=== PATIENT | male | born 1970 | race Caucasian/White ===

== ENCOUNTER 2018-04-20 13:05 | Emergency (ER) | payer OTHER ==
[2018-04-20 13:20] VITALS: BP 134/83; PULSE 97; RESP 18; TEMP 98.1
--- NOTE | 2018-04-20 13:40 | ED ---
General Adult HPI - General Chief complaint: Psychiatric Symptoms Stated complaint: panic attacks Time Seen by Provider: 04/20/18 13:05 Source: patient, RN notes reviewed Mode of arrival: ambulatory Limitations: no limitations - History of Present Illness Initial comments: This is a 47-year-old male who presents emergency Department complaining of anxiety. Patient states that his anxiety is been taking Xanax. Patient states he recently moved up from [place] and is yet to get into his doctor's appointment. Patient states she has a doctor department on the this month. Patient states he keeps waking up in the panic because he has broken his leg recently is unable to work and so he is very anxious. Patient states she's also had a bee living with his mother because of the broken leg and that is also increasing his anxiety. Patient states he's had no difficulty breathing chest pain or palpitations. Patient states he just needs his Xanax prescription back and he will be feeling fine. Patient denies any swelling to his legs or pain in his legs. - Related Data Previous Rx's Medication Instructions Recorded ALPRAZolam [Xanax] 0.25 mg PO DAILY PRN #20 tab 04/20/18 Allergies Allergy/AdvReac Type Severity Reaction Status Date / Time No Known Allergies Allergy Verified 04/20/18 13:19 Review of Systems ROS Statement: Those systems with pertinent positive or pertinent negative responses have been documented in the HPI. ROS Other: All systems not noted in ROS Statement are negative. Past Medical History Past Medical History: No Reported History History of Any Multi-Drug Resistant Organisms: None Reported Past Surgical History: No Surgical Hx Reported Past Psychological History: No Psychological Hx Reported Smoking Status: Current every day smoker Past Alcohol Use History: None Reported Past Drug Use History: None Reported General Exam - General Exam Comments Initial Comments: GENERAL: Patient is well-developed and well-nourished. Patient is nontoxic and well- hydrated and is in no acute distress. ENT: Neck is soft and supple. No significant lymphadenopathy is noted. Oropharynx is clear. Moist mucous membranes. Neck has full range of motion without eliciting any pain. EYES: The sclera were anicteric and conjunctiva were pink and moist. Extraocular movements were intact and pupils were equal round and reactive to light. Eyelids were unremarkable. PULMONARY: Unlabored respirations. Good breath sounds bilaterally. No audible rales rhonchi or wheezing was noted. CARDIOVASCULAR: There is a regular rate and rhythm without any murmurs gallops or rubs. SKIN: Skin is clear with no lesions or rashes and otherwise unremarkable. NEUROLOGIC: Patient is alert and oriented x3. Cranial nerves II through XII are grossly intact. Motor and sensory are also intact. Normal speech, volume and content. Symmetrical smile. MUSCULOSKELETAL: Patient has a short-leg cast on the left leg LYMPHATICS: No significant lymphadenopathy is noted PSYCHIATRIC: Patient is slightly anxious in the emergency department. Limitations: no limitations Course Vital Signs 04/20/18 13:17 Temperature 98.1 F Pulse Rate 97 Respiratory 18 Rate Blood Pressure 134/83 O2 Sat by Pulse 100 Oximetry Disposition Clinical Impression: Acute anxiety Disposition: HOME SELF-CARE Condition: Good Instructions: Anxiety (ED) Prescriptions: ALPRAZolam [Xanax] 0.25 mg PO DAILY PRN #20 tab PRN Reason: Anxiety Is patient prescribed a controlled substance at d/c from ED?: Yes When asked, does pt state using other controlled substances?: No If prescribed controlled substance>3 days was MAPS reviewed?: Yes Referrals: Edgar Monahan MD [Primary Care Provider] - 1-2 days Time of Disposition: 13:37
== END 2018-04-20 14:00 | disposition home or self-care (01) ==
LOC: EC 13:05
DX: F41.9 Anxiety disorder, unspecified (principal); F17.200 Nicotine dependence, unspecified, uncomplicated
CPT/HCPCS: 99283

== ENCOUNTER 2018-11-06 13:09 | Day surgery (SDC) | payer OTHER ==
[~2018-11-06 13:09] MED LIST: DEXAMETHASONE SOD PHOSPHATE 10 MG/ML 1 ML VIAL IV ONE; LACTATED RINGERS 1,000 ML IV SCH; LIDOCAINE 1% 20 ML VIAL (10MG/ML) FOR IV START INTRADERMA PRN; MIDAZOLAM 2 MG/2 ML VIAL IV PRN; ceFAZolin IN SWFI 2 GM/20 ML SYRINGE IVP ONE
[2018-11-06] MEDS ORDERED: ONDANSETRON 4 MG/2 ML VIAL IVP ONE (14:10)
[2018-11-06] MEDS ORDERED: MIDAZOLAM (PF) 2 MG/2 ML VIAL IVP ONE (16:00)
[2018-11-06] MEDS ORDERED: fentaNYL (PF) 50 MCG/ML 2 ML AMP ONE (18:10)
[2018-11-06] MEDS ORDERED: PROPOFOL 10 MG/ML 20 ML VIAL IV ONE (18:10)
[2018-11-06] MEDS ORDERED: MIDAZOLAM 2 MG/2 ML VIAL ONE (18:10)
[2018-11-06] MEDS ORDERED: SUCCINYLCHOLINE CHLORIDE 100 MG/5 ML SYR IV ONE (18:10)
[2018-11-06] MEDS ORDERED: LIDOCAINE 1% INJ 10MG/ML (20 ML MDV) ONE (18:10)
--- NOTE | 2018-11-06 18:58 | P.OP ---
Date of Procedure: 11/06/18 Preoperative Diagnosis: 1. Left global tendo Achilles contracture 2. History of left clubfoot 3. Prior distal tibia and navicular fractures, left Postoperative Diagnosis: Same Procedure(s) Performed: Left percutaneous Starke triple hemisection tendo Achilles lengthening Anesthesia: BRONWYN Surgeon: Tarun Munson Cma Or Lpn #1: Jolie Hayes Estimated Blood Loss (ml): 2 IV fluids (ml): 400 Pathology: none sent Condition: stable Disposition: PACU Indications for Procedure: The patient is a very pleasant 48-year-old male with a medical history significant for current every day cigarette smoking and chronic narcotic depend ence who also has a history of residual left clubfoot who I previously managed a nondisplaced intra-articular distal tibia fracture and navicular fracture. He went on to heal his fractures, but had difficulty with ambulating due to his global tendo Achilles contracture. We discussed physical therapy, night splinting, serial casting, versus percutaneous or open tendo Achilles lengthening. The patient requested operative intervention. We discussed both percutaneous tendo Achilles lengthening versus an open Z-lengthening. Due to the patient's smoking 1 pack of cigarettes a day I recommended percutaneous lengthening due to his very high risk of having a wound complication. The patient understood and agreed to this. He understands the potential for under correction and need for an open lengthening. We discussed all the potential risks and complications including but not limited to risk of anesthesia, superficial infection, deep infection, delayed wound healing, damage to local blood ulcer nerves, Achilles tendon rupture, over lengthening the Achilles tendon resulting in weakness in a crouched gait, under lengthening the tendon with recurrence of his contracture, generalized to satisfaction with surgery, DVT, PE, other medical complications, and inability to regain preinjury level of function and possibly loss of life or limb. The patient voiced his understanding of these potential complications and also acknowledges that other less common complications are possible. He also understands that is a higher risk of having a complication due to his current every day cigarette smoking. Description of Procedure: The patient was identified and prepped holding and the correct left lower extremity was verified and marked with a skin marker. I reviewed the consent form with the patient and his mom. All their questions were answered. The patient was then brought back to the operating room. He was positioned on the OR table where general anesthetic and preoperative antibiotics were administered. The patient had a tourniquet applied proximal aspect of his thigh but was not used during the case. While he was under anesthesia I performed a Silfverskiold test. With the knee extended he was fixed in 20 of equinus. When I bent the knee he remained in 20 of equinus. I interpreted this as a global tendo Achilles contracture. The left leg was then prepped and draped in the standard sterile fashion. Prior to starting surgery timeout verifying the correct patient, operative extremity, and procedure. X The patient's left leg was then elevated by an medication assistant and 3 stab incisions were made a 2 cm intervals starting just proximal to the posterior tuberosity of the calcaneus within the mid substance of the Achilles tendon. The most proximal and distal incisions were used to release the medial 50% of the Achilles tendon and the middle incision was used to release the lateral 50% of the Achilles tendon. A gentle dorsiflexion force was applied to the ankle and there was a palpable and audible pop as the Achilles tendon lengthened. After releasing the Achilles I was able to dorsiflex the ankle just past neutral. The Achilles tendon was palpably intact. The incisions were closed with interrupted 3-0 nylon. A sterile dressing followed by an Omer wrap was applied. The patient was awoken from his anesthetic and brought to recovery having tolerated the procedure well. Plan: the patient is going to be strictly nonweightbearing tonight in his tall boot. He will follow-up in the office tomorrow for a cast.
[2018-11-06 19:04] VITALS: TEMP 97.1
[2018-11-06] MEDS: fentaNYL (PF) 50 MCG/ML 2 ML AMP IV PRN ×2 (19:09→19:20)
[2018-11-06] MEDS ORDERED: HYDROcodone/APAP 10-325MG 1 EACH TAB PO ONE (19:45)
[2018-11-06 19:48] VITALS: PULSE 90; RESP 18
[2018-11-06 20:43] VITALS: BP 139/94
== END 2018-11-06 20:05 | disposition home or self-care (01) ==
LOC: OR 13:09
PROVIDERS: ATTEND Orthopaedic Surgery
DX: M67.02 Short Achilles tendon (acquired), left ankle (principal); Z87.39 Personal history of other diseases of the musculoskeletal system and connective tissue; Z87.81 Personal history of (healed) traumatic fracture; F41.9 Anxiety disorder, unspecified; F17.210 Nicotine dependence, cigarettes, uncomplicated; Z79.891 Long term (current) use of opiate analgesic; Z79.899 Other long term (current) drug therapy
CPT/HCPCS: 27685; J2250 ×2; J1100; J2405; J2001; J3010; J0330; J2704; J0690

== ENCOUNTER 2021-02-03 07:46 | Day surgery (SDC) | payer MEDICARE, OTHER ==
[2021-01-31 14:51] VITALS: BMI 28.0
[~2021-02-03 07:46] MED LIST changes: -DEXAMETHASONE SOD PHOSPHATE 10 MG/ML 1 ML VIAL IV ONE; -LIDOCAINE 1% 20 ML VIAL (10MG/ML) FOR IV START INTRADERMA PRN; -MIDAZOLAM 2 MG/2 ML VIAL IV PRN; -ceFAZolin IN SWFI 2 GM/20 ML SYRINGE IVP ONE
[2021-02-03 08:06] VITALS: TEMP 97.8
[2021-02-03] MEDS ORDERED: LACTATED RINGERS 1,000 ML IV ONE (08:06)
[2021-02-03] MEDS ORDERED: PROPOFOL 10 MG/ML 20 ML VIAL IV ONE (09:33)
[2021-02-03] MEDS ORDERED: LIDOCAINE 1% INJ 10MG/ML (20 ML MDV) ONE (09:33)
--- NOTE | 2021-02-03 09:38 | P.GSHP ---
History of Present Illness H&P Date: 02/03/21 GERD, positive cologuard Past Medical History Past Medical History: GERD/Reflux, Sleep Apnea/CPAP/BIPAP Additional Past Medical History / Comment(s): PAIN IN LEFT ANKLE. HERNIATED DISC. positive cologuard History of Any Multi-Drug Resistant Organisms: None Reported Past Surgical History: Orthopedic Surgery Additional Past Surgical History / Comment(s): achilles tendon lt foot lengthened Past Anesthesia/Blood Transfusion Reactions: No Reported Reaction Additional Past Anesthesia/Blood Transfusion Reaction / Comment(s): HAS NEVER HAD GENERAL ANESTHESIA. Smoking Status: Current every day smoker - Past Family History Mother Family Medical History: No Reported History Medications and Allergies Home Medications Medication Instructions Recorded Confirmed Type ALPRAZolam [Xanax] 1 mg PO DAILY PRN 01/31/21 01/31/21 History Cholecalciferol (Vitamin D3) 125 mcg PO DAILY 01/31/21 01/31/21 History [Vitamin D3 (125 MCG = 5,000 IU)] Escitalopram [Lexapro] 20 mg PO DAILY 01/31/21 01/31/21 History traZODone HCL 50 mg PO HS PRN 01/31/21 01/31/21 History Allergies Allergy/AdvReac Type Severity Reaction Status Date / Time No Known Allergies Allergy Verified 01/31/21 14:40 Surgical - Exam Vital Signs Temp Pulse Resp BP Pulse Ox 97.8 F 96 18 129/81 97 02/03/21 08:05 02/03/21 08:05 02/03/21 08:05 02/03/21 08:05 02/03/21 08:05 - General well developed, well nourished, no distress - Eyes PERRL - ENT normal pinna - Neck no masses - Respiratory normal expansion - Cardiovascular Rhythm: regular - Abdomen Abdomen: soft, non tender Assessment and Plan Assessment: We'll perform EGD and colonoscopy
--- NOTE | 2021-02-03 09:59 | P.OP ---
Date of Procedure: 02/03/21 Preoperative Diagnosis: GERD, GI bleed Postoperative Diagnosis: Antral gastritis duodenum Mild esophagitis Transverse colon polyp Procedure(s) Performed: EGD Colonoscopy Anesthesia: MAC Surgeon: Gm Obando Pathology: other (Antrum, esophagus, transverse colon polyp) Condition: stable Disposition: PACU Description of Procedure: The patient's placed on the endoscopy table in the lateral she received IV sedation. The gastro-placed oropharynx passed in the esophagus into the stomach. Scope was placed through the pylorus. First and second portion of the duodenum appeared normal. Scope was then brought back the antrum this appeared mildly. A biopsies performed. The scope was then retroflexed and the remainder of the stomach appeared normal. Patient had a small hiatal hernia. The GE junction was at 40 cm. The distal esophagus moderately inflamed a biopsies performed. The proximal esophagus appeared normal. Scope was withdrawn for patient. Next digital rectal exam was performed which revealed no abnormalities. Flexible colonoscope was then placed patient anus and passed throughout the entire colon. Ileocecal valve sutures. The cecum ascending colon appeared normal. The transverse colon there was a small polyp was removed with the snare. The remainder of the transverse colon descending colon and sigmoid colon appeared normal. Scope was then brought back the rectum and this appeared normal. Scope withdrawn for patient.
[2021-02-03 10:24] VITALS: BP 122/82; PULSE 74; RESP 16
== END 2021-02-03 10:37 | disposition home or self-care (01) ==
LOC: ORWHC2ENDO 07:46
PROVIDERS: ATTEND Surgery
DX: K29.50 Unspecified chronic gastritis without bleeding (principal); K21.00 Gastro-esophageal reflux disease with esophagitis, without bleeding; D12.3 Benign neoplasm of transverse colon; F17.200 Nicotine dependence, unspecified, uncomplicated; G47.33 Obstructive sleep apnea (adult) (pediatric); Z99.81 Dependence on supplemental oxygen
CPT/HCPCS: 45385; 43239; 88305; 88312; J2001; J2704

== ENCOUNTER → 2021-02-28 | Outpatient (CLI) | payer MEDICARE, OTHER ==
[2021-02-28 10:20] LABS: Basophils # (A) 0.1 k/uL (0-0.2); Basophils % (A) 1 %; Eosinophils # (A) 0.3 k/uL (0-0.7); Eosinophils % (A) 3 %; HCT 47.9 % (39.0-53.0); Lymphocytes # (A) 2.5 k/uL (1.0-4.8); Lymphocytes % (A) 25 %; MCH 30.9 pg (25.0-35.0); MCHC 33.4 g/dL (31.0-37.0); MCV 92.7 fL (80.0-100.0); Mean Platelet Volume 7.9; Monocytes # (A) 0.5 k/uL (0-1.0); Monocytes % (A) 5 %; Neutrophils # (A) 6.3 k/uL (1.3-7.7); Neutrophils % (A) 63 %; Platelet Count 283 k/uL (150-450); RBC 5.17 m/uL (4.30-5.90); RDW 14.2 % (11.5-15.5)
== END | disposition home or self-care (01) ==
LOC: LABPAT 08:40
PROVIDERS: ATTEND Surgery
DX: Z01.818 Encounter for other preprocedural examination (principal); K21.00 Gastro-esophageal reflux disease with esophagitis, without bleeding; D64.89 Other specified anemias
CPT/HCPCS: 36415; 85025; 93005

== ENCOUNTER 2021-03-04 07:54 | Observation (INO) | payer MEDICARE, OTHER ==
[~2021-03-04 07:54] MED LIST changes: +ACETAMINOPHEN TAB 500 MG TAB PO PRN; +DEXAMETHASONE SOD PHOSPHATE 4 MG/ML 1 ML VIAL IV ONE; +HEPARIN SODIUM,PORCINE/PF 5,000 UNIT/0.5 ML SYRINGE SQ PRN; -LACTATED RINGERS 1,000 ML IV SCH; +LIDOCAINE 1% (10MG/ML) FOR IV START INTRADERMA PRN; +MIDAZOLAM 2 MG/2 ML VIAL IV PRN; +ONDANSETRON 4 MG/2 ML VIAL IVP ONE
[2021-03-04] MEDS: LACTATED RINGERS 1,000 ML IV SCH (08:34)
[2021-03-04] MEDS ORDERED: MIDAZOLAM 2 MG/2 ML VIAL IV ONE (08:39)
--- NOTE | 2021-03-04 08:41 | P.GSHP ---
History of Present Illness H&P Date: 03/04/21 Chief Complaint: GERD Is a 50-year-old male referred from Dr. Edgar Rodriges. MThe patient has had long-standing problems with reflux esophagitis. The patient underwent recent EGD is found have evidence of esophagitis. Patient has been well informed on the procedure of laparoscopic Angelito fundoplication. The patient is aware the risk of the conversion to the open procedure, risk of injury to the stomach, liver and spleen. The patient is also a risk of recurrent GERD and dysphagia symptoms. The patient understands there is a postoperative diet of full liquids for 2 weeks after surgery. Past Medical History Past Medical History: GERD/Reflux, Sleep Apnea/CPAP/BIPAP Additional Past Medical History / Comment(s): PAIN IN LEFT ANKLE. HERNIATED DISC. History of Any Multi-Drug Resistant Organisms: None Reported Past Surgical History: Orthopedic Surgery Additional Past Surgical History / Comment(s): Achilles tendon left foot lengthened, EGD, Colonoscopy. Past Anesthesia/Blood Transfusion Reactions: No Reported Reaction Additional Past Anesthesia/Blood Transfusion Reaction / Comment(s): HAS NEVER HAD GENERAL ANESTHESIA. Past Psychological History: Anxiety Smoking Status: Current every day smoker Past Alcohol Use History: None Reported Additional Past Alcohol Use History / Comment(s): HAS SMOKED SINCE AGE 19. DOWN TO ABOUT 1 PACK EVERY 2 DAYS. Past Drug Use History: Marijuana Additional Drug Use History / Comment(s): Jazmin, aware no use 24 hrs prior to procedure. - Past Family History Mother Family Medical History: No Reported History Medications and Allergies Home Medications Medication Instructions Recorded Confirmed Type Cholecalciferol (Vitamin D3) 125 mcg PO DAILY 01/31/21 03/04/21 History [Vitamin D3 (125 MCG = 5,000 IU)] Escitalopram [Lexapro] 20 mg PO QAM 01/31/21 03/04/21 History ALPRAZolam [Xanax] 2.5 mg PO BID 03/02/21 03/04/21 History Propranolol [Inderal] 20 mg PO HS 03/02/21 03/04/21 History Allergies Allergy/AdvReac Type Severity Reaction Status Date / Time No Known Allergies Allergy Verified 03/02/21 15:41 Surgical - Exam Vital Signs Temp Pulse Resp BP Pulse Ox 97.7 F 88 16 122/87 90 L 03/04/21 08:13 03/04/21 08:13 03/04/21 08:13 03/04/21 08:13 03/04/21 08:13 - General well developed, well nourished, no distress - Eyes PERRL - ENT normal pinna - Neck no masses - Respiratory normal expansion - Cardiovascular Rhythm: regular - Abdomen Abdomen: soft, non tender Assessment and Plan Assessment: GERD. We'll perform laparoscopic Angelito fundal plication.
[2021-03-04] MEDS ORDERED: BUPIVACAINE (PF) 0.5% 30 ML VIAL SQ ONE ×2 (09:07→09:26)
[2021-03-04] MEDS ORDERED: PROPOFOL 10 MG/ML 20 ML VIAL IV ONE (09:09)
[2021-03-04] MEDS ORDERED: HYDROmorphone (PF) 1 MG/ML ONE (09:09)
[2021-03-04] MEDS ORDERED: GLYCOPYRROLATE 0.2 MG/ML 2 ML VIAL ONE (09:09)
[2021-03-04] MEDS ORDERED: ROCURONIUM 10 MG/ML (5 ML VIAL) IV ONE (09:09)
[2021-03-04] MEDS ORDERED: MIDAZOLAM 2 MG/2 ML VIAL ONE (09:09)
[2021-03-04] MEDS ORDERED: LIDOCAINE 1% INJ 10MG/ML (20 ML MDV) ONE (09:09)
[2021-03-04] MEDS ORDERED: NEOSTIGMINE 1 MG/ML 10 ML VIAL ONE (09:09)
[2021-03-04] MEDS ORDERED: SUCCINYLCHOLINE CHLORIDE 100 MG/5 ML SYR IV ONE (09:09)
[2021-03-04] MEDS ORDERED: fentaNYL (PF) 50 MCG/ML 2 ML AMP ONE (09:09)
--- NOTE | 2021-03-04 10:04 | P.OP ---
Date of Procedure: 03/04/21 Preoperative Diagnosis: GERD Postoperative Diagnosis: GERD Procedure(s) Performed: Laparoscopic Angelito fundoplication Anesthesia: BRONWYN Surgeon: Gm Obando Estimated Blood Loss (ml): 5 Pathology: none sent Condition: stable Disposition: PACU Description of Procedure: Mignonhe patient was placed on the operating table in the supine position. The patient received general anesthesia. And was placed in dorsal lithotomy position. The patient was prepped and draped in the usual sterile fashion. The skin incision sites were anesthetized with 1% local Xylocaine. The skin was incised in the left periumbilical area and then using a blade less 5 mm trocar under direct visualization panel cavity was entered. After adequate insufflation the laparoscope was then placed into the peritoneal cavity. Next a 5 mm trochars placed in the right epigastric position. Another 5 millimeter trocar the right lateral position. Another 5 millimeter trocar in the left lateral position a 5 mm trocar is placed in the left epigastric position. And then the initial 5 mm trocar was exchanged for a 10 mm trocar. The left lateral lobe liver was retracted. The hernia was seen. The crural defect was then dissected using the Harmonic scissors device. A 360 crural dissection was performed the esophagus stomach was reduced back into the peritoneal Cavity. The crural defect was then closed using 2-0 Ethibond suture. Next the fundus of the stomach was mobilized using the [place]uma scissors device. and then a 58- Scottish bougie dilator was placed oropharynx passed into the esophagus and stomach the fundal plication wrap was then performed by grasping the fundus posteriorly and bringing it around the esophagus and stomach fundoplication was then performed using 2-0 Ethibond suture. Care was taken that the fundal location rested over top of the intra-abdominal esophagus. There was no injury seen to the stomach or esophagus. The dilator was then withdrawn. The abdomen was irrigated there is no bleeding seen. The trochars were then withdrawn and then skin incision sites were closed using 3-0 Monocryl suture Steri-Strips are applied. Patient thought procedure well and sent to recovery room in stable condition.
[2021-03-04] MEDS ORDERED: HYDROmorphone 1 MG/ML 1 ML SYRINGE IVP PRN (10:06)
[2021-03-04] MEDS ORDERED: ONDANSETRON 4 MG/2 ML VIAL IVP PRN (10:06)
[2021-03-04] MEDS: HYDROmorphone 0.5 MG/0.5 ML SYRINGE IVP PRN ×5 (10:09→22:32)
[2021-03-04] MEDS ORDERED: diphenhydrAMINE 50 MG/ML 1 ML VIAL ONE (10:17)
[2021-03-04] MEDS ORDERED: diphenhydrAMINE 50 MG/ML 1 ML VIAL IVP ONE (10:22)
[2021-03-04] MEDS: MEPERIDINE 50 MG/ML SYRINGE IVP ONE ×2 (10:45→10:55)
[2021-03-04] MEDS ORDERED: LACTATED RINGERS 1,000 ML IV ONE ×2 (10:54)
[2021-03-04] MEDS: HYDROmorphone 1 MG/ML 1 ML SYRINGE IVP PRN ×2 (13:51→17:50)
[2021-03-04] MEDS: LORazepam 2 MG/ML INJ IV PRN (15:59)
[2021-03-04] MEDS: D5-0.45% NACL WITH KCL 20MEQ/L 1,000 ML IV SCH ×2 (15:59→22:23)
[2021-03-04] MEDS: NICOTINE 21MG/24HR PATCH TRANSDERM SCH (15:59)
--- NOTE | 2021-03-04 18:17 | CONS ---
CONSULTATION This is a 50-year-old white male in for EGD with esophagitis. He was admitted. He is status post medical consult. History of GERD, sleep apnea, BiPAP, orthopedic surgeries. SOCIAL HISTORY: Current everyday smoker, one pack every 2 days. Marijuana gummies. FAMILY HISTORY: Mother negative. HOME MEDICATIONS: Vitamin D2, Lexapro 20 daily, 0.5 mg b.i.d., Inderal 20 daily. ALLERGIES: NEGATIVE. PHYSICAL EXAMINATION: Temperature 97, pulse 80 to 88, respiratory rate 16-12, blood pressure 120s over 80s, O2 98% on room air. Cardiovascular S1, S2. Lungs clear. ENT normal. Pupils equal, round, reactive. Psych: Fair mood and affect. Neurologic: Alert and oriented x3. Status post Angelito fundoplication. Will resume his home medications. Monitor his breathing overnight. He is saturating 92 to 93 on room air. Blood pressure is 150s to 160s. Pulse is 80s. Possibly start some blood pressure medicines tonight. MMODL / IJN: [id number] /
[2021-03-04] MEDS: PROPRANOLOL 20 MG TAB PO SCH (21:15)
[2021-03-04] MEDS: ALPRAZolam 1 MG TAB PO SCH (21:22)
[2021-03-05] MEDS: D5-0.45% NACL WITH KCL 20MEQ/L 1,000 ML IV SCH ×2 (00:46→09:27)
[2021-03-05] MEDS: HYDROmorphone 0.5 MG/0.5 ML SYRINGE IVP PRN ×3 (00:50→09:25)
[2021-03-05] MEDS: LORazepam 2 MG/ML INJ IV PRN (02:59)
[2021-03-05] MEDS: HYDROmorphone 1 MG/ML 1 ML SYRINGE IVP PRN ×3 (04:00→11:12)
[2021-03-05 07:22] VITALS: BP 153/99; PULSE 93; RESP 18; TEMP 97.7
[2021-03-05] MEDS: ALPRAZolam 1 MG TAB PO SCH (08:50)
[2021-03-05] MEDS: PROPRANOLOL 20 MG TAB PO SCH (08:51)
[2021-03-05] MEDS ORDERED: ESCITALOPRAM 20 MG TAB PO SCH (09:00)
[2021-03-05] MEDS ORDERED: CHOLECALCIFEROL 25 MCG (1000 IU) TABLET PO SCH (09:00)
[2021-03-05] MEDS ORDERED: ENOXAPARIN 40 MG/0.4 ML SYRINGE SQ SCH (09:00)
[2021-03-05] MEDS: LACTATED RINGERS 1,000 ML IV SCH (11:41)
[2021-03-05] MEDS: NICOTINE 21MG/24HR PATCH TRANSDERM SCH (11:45)
== END 2021-03-05 13:45 | disposition home or self-care (01) ==
LOC: OR 07:54 → 4SSUR 09:50 → OR 03-05 11:10 → 4SSUR 03-05 11:10
PROVIDERS: ADMIT Surgery; ATTEND Surgery
DX: K21.00 Gastro-esophageal reflux disease with esophagitis, without bleeding (principal); K44.9 Diaphragmatic hernia without obstruction or gangrene; G47.30 Sleep apnea, unspecified; F41.9 Anxiety disorder, unspecified; F17.210 Nicotine dependence, cigarettes, uncomplicated; Z79.899 Other long term (current) drug therapy; Z98.890 Other specified postprocedural states; Z87.39 Personal history of other diseases of the musculoskeletal system and connective tissue
CPT/HCPCS: 87635; 43280; G0378; S4990 ×2; J2250; J2060 ×2; J1200; J1100; J2710; J2175; J0690 ×2; J2405; J2001; J1650; J3010; J1170 ×4; J0330; J2704; J1644

== ENCOUNTER 2021-10-20 00:15 | Emergency (ER) | payer MEDICARE, OTHER ==
[2021-10-20] MEDS ORDERED: ONDANSETRON 4 MG/2 ML VIAL IVP STA (00:18)
[2021-10-20] MEDS ORDERED: LORazepam 2 MG/ML INJ IV STA (00:18)
[2021-10-20] MEDS ORDERED: SODIUM CHLORIDE 0.9% 1,000 ML IV STA (00:18)
[2021-10-20] MEDS ORDERED: HYDROmorphone 1 MG/ML 1 ML SYRINGE IVP STA ×11 (00:18→02:29)
[2021-10-20] MEDS ORDERED: DIPH,PERTUS(ACELL)TETVAC-LF 0.5 ML VIAL IM ONE (00:18)
[2021-10-20] MEDS ORDERED: RX INFO: IV CONTRAST WAS GIVEN 1 EACH MISC MISCELLANE PRN (00:18)
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
[2021-10-20 00:25] VITALS: BP 133/118; PULSE 106; RESP 24; TEMP 98.1
[2021-10-20 00:33] LABS: Basophils # (A) 0.1 k/uL (0-0.2); Basophils % (A) 2 %; Eosinophils # (A) 0.3 k/uL (0-0.7); Eosinophils % (A) 3 %; HCT 41.8 % (39.0-53.0); HGB 13.3 gm/dL (13.0-17.5); Lymphocytes % (A) 36 %; MCH 28.9 pg (25.0-35.0); MCHC 31.9 g/dL (31.0-37.0); MCV 90.5 fL (80.0-100.0); Mean Platelet Volume 7.5; Monocytes # (A) 0.4 k/uL (0-1.0); Monocytes % (A) 5 %; Neutrophils # (A) 4.2 k/uL (1.3-7.7); Neutrophils % (A) 50 %; Platelet Count 303 k/uL (150-450); RBC 4.62 m/uL (4.30-5.90); RDW 13.3 % (11.5-15.5); WBC 8.4 k/uL (3.8-10.6)
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
[2021-10-20 00:44] LABS: ALT 21 U/L (4-49); AST 28 U/L (17-59); African American GFR (CKD) >90 (>60 ml/min/1.73 sqM); Albumin 3.6 g/dL (3.5-5.0); Alcohol <10 mg/dL; Alkaline Phosphatase 83 U/L (38-126); Anion Gap 6 mmol/L; Blood Urea Nitrogen 12 mg/dL (9-20); Calcium 8.5 mg/dL (8.4-10.2); Carbon Dioxide 28 mmol/L (22-30); Chloride 102 mmol/L (98-107); Glucose 110 mg/dL (74-99); Non-African American GFR(CKD) >90 (>60 ml/min/1.73 sqM); Potassium 3.8 mmol/L (3.5-5.1); Sodium 136 mmol/L (137-145); Total Bilirubin 0.4 mg/dL (0.2-1.3); Total Protein 6.4 g/dL (6.3-8.2)
[2021-10-20 00:47] LABS: Partial Thromboplastin Time 22.9 sec (22.0-30.0); Prothrombin Time 10.6 sec (9.0-12.0)
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
[2021-10-20] MEDS ORDERED: HYDROmorphone 0.5 MG/0.5 ML SYRINGE IVP STA (02:29)
== END 2021-10-20 02:28 | disposition other institution (70) ==
LOC: EC 00:15
DX: S62.307B Unspecified fracture of fifth metacarpal bone, left hand, initial encounter for open fracture (principal); S71.132A Puncture wound without foreign body, left thigh, initial encounter; K21.9 Gastro-esophageal reflux disease without esophagitis; F41.9 Anxiety disorder, unspecified; F17.200 Nicotine dependence, unspecified, uncomplicated; F12.90 Cannabis use, unspecified, uncomplicated; Z79.899 Other long term (current) drug therapy; W34.00XA Accidental discharge from unspecified firearms or gun, initial encounter
CPT/HCPCS: 36415; 86900; 86901; 80053; 83605; 84484; 85025; 85610; 85730; 86850; 73552; 73120; 71250; 74176; 73706; 99291; 96365; 96374; 96375; 96376 ×4; 96361; G0480; J2060; J0690; J1170; Q9967; 80320

== ENCOUNTER → 2024-09-20 | Outpatient (CLI) | payer MEDICARE ==
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
== END | disposition home or self-care (01) ==
LOC: RADMRIMAIN 12:22
PROVIDERS: ATTEND Family Medicine
DX: M51.16 Intervertebral disc disorders with radiculopathy, lumbar region (principal); M99.73 Connective tissue and disc stenosis of intervertebral foramina of lumbar region
CPT/HCPCS: 72158; A9585